=== PATIENT | male | born 1960 | race Two or more races ===

== ENCOUNTER → 2016-10-21 | Outpatient (CLI) | payer MEDICAID ==
[~2016-10-21] MED LIST: ASPI81CH43 PO; EXENINJ SC; GABA300C8 PO; GLIM1TAB2 PO; METF-312 PO; OMEP20CA5 PO; PANT40T PO; PRAV20TA3 PO; RANO1000 PO; SERT-160 PO
[2016-10-21 09:00] VITALS: BP 146/82
[2016-10-21 09:40] VITALS: BP 133/77
[2016-10-21 13:23] LABS: Basophils # (auto) 0.1 uL; Basophils % (auto) 0.7 % (0.0-2.0); Eosinophils # (auto) 0.2 uL; Eosinophils % (auto) 1.7 % (0.0-7.0); Lymphocytes # (auto) 1.9 uL; Lymphocytes % (auto) 19.6 % (10.0-50.0); Mean Corpuscular Hemoglobin 30.3 pg (28.0-32.0); Mean Corpuscular Hgb Conc. 32.7 g/dL (32.0-36.0); Mean Corpuscular Volume 92.7 fL (80.0-100.0); Mean Platelet Volume 9.1 fL (7.4-10.4); Monocytes # (auto) 0.5 uL; Platelet Count (auto) 241 10^3/uL (140-450); Red Cell Distribution Width 13.6 % (11.6-16.0); White Blood Cell 9.5 10^3/uL (4.4-10.8)
[2016-10-21 13:29] LABS: INR 1.02 (0.9-1.15); Partial Thromboplastin Time 26.2 sec (22.64-33.71); Prothrombin Time 10.5 sec (9.37-12.3)
[2016-10-21 13:40] LABS: Calcium 8.4 mg/dL (8.5-10.1); Potassium 4.5 mmol/L (3.5-5.1)
[2016-10-21 13:42] LABS: BUN/Creatinine Ratio 18.3
== END | disposition home or self-care (01) ==
LOC: Rad HDHVI 08:45
PROVIDERS: ATTEND Internal Medicine Cardiovascular Disease
DX: I10 Essential (primary) hypertension (principal); D64.9 Anemia, unspecified; R79.1 Abnormal coagulation profile
CPT/HCPCS: 36415; 71020; 80048; 85025; 85610; 85730; 99195; G0463

== ENCOUNTER 2016-10-26 06:25 | Day surgery (SDC) | payer MEDICAID ==
[~2016-10-26] VITALS: Ht 170.2 cm; Wt 148.8 kg
[2016-10-26] MEDS ORDERED: IODIXANOL 320MG/ML 100ML BTL IV ONE (07:20)
[2016-10-26] MEDS ORDERED: LIDOCAINE 2%HCL (LOCAL ANESTH.) INJ 20ML MDV ONE (07:20)
[2016-10-26] MEDS ORDERED: fentaNYL CITRATE 100 MCG/2 ML VL ONE (08:49)
[2016-10-26] MEDS ORDERED: ANGIOMAX 250 MG VIAL IV ONE (08:49)
[2016-10-26] MEDS ORDERED: SODIUM CHL 0.9% 0 ML ONE (08:50)
[2016-10-26] MEDS ORDERED: MIDAZOLAM HCL 1MG/1ML-2 ML VIAL ONE (08:50)
[2016-10-26] MEDS ORDERED: EPTIFIBATIDE INJ (2MG/ML) 10ML VIAL IV ONE (08:51)
== END 2016-10-26 13:30 | disposition home or self-care (01) ==
LOC: CATH 06:25
PROVIDERS: ATTEND Internal Medicine Cardiovascular Disease
DX: R94.39 Abnormal result of other cardiovascular function study (principal); E66.01 Morbid (severe) obesity due to excess calories; I10 Essential (primary) hypertension; E78.5 Hyperlipidemia, unspecified
CPT/HCPCS: 93458; C1760; C1894; J1644; J3010; J7030; 99152; J2250; Q9967